=== PATIENT | female | born 1960 | race African-American/Black ===

== ENCOUNTER → 2018-03-18 | Outpatient (CLI) | payer BC ==
[~2018-03-18] MED LIST: ALDACTONE25 MG PO; ASPIR 8181 MG PO; CARVEDILOL12.5 MG PO; CATAPRES0.1 MG PO; CLONIDINE0.1 PO; HYDROCHLOROTHIA25 M2 PO; K-DUR 20 MEQ T20 MEQ PO; LASIX 40 MG TAB40 M1 PO; LISINOPRIL20 MG PO; PRINIVIL20 MG PO
--- NOTE | ~2018-03-18 | 2DMMODE ---
[facility] [place] [address] 2 D/M-MODE ECHOCARDIOGRAM Name: CHRISTOFER OCASIO Room #: REG [facility]#: [id number] Admission: 03/18/18 Attend Phys: Melchor Paniagua MD Discharge: Date of : 64 Date of Service: 03/18/18 1504 Report #: [id number] THIS REPORT FOR: //name// APPROVED REPORT Study performed: 03/18/2018 14:13:03 EXAM: Comprehensive 2D, Doppler, and color-flow Echocardiogram Patient Location: Out-Patient Status: routine BSA: 1.87 HR: 90 bpm BP: 168/103 mmHg Other Information Study Quality: Adequate Indications Congestive Heart Failure CAD Hypertension/HDD 2D Dimensions RVDd: 28.19 mm IVSd: 11.25 (7-11mm) LVOT Diam: 19.61 (18-24mm) LVDd: 46.99 mm PWd: 11.40 (7-11mm) Ascending Ao: 30.90 (22-36mm) LVDs: 35.81 (25-40mm) Aortic Root: 27.64 mm IVC: 10.00 mm Volumes Left Atrial Volume (Systole) Single Plane 4CH: 65.25 mL Single Plane 2CH: 58.86 mL LA ESV Index: 35.00 mL/m2 Aortic Valve AoV Peak Keagan.: 1.59 m/s AO Peak Gr.: 10.18 mmHg LVOT Max P.47 mmHg LVOT Max V: 1.17 m/s NA Vmax: 2.21 cm2 Mitral Valve E/A Ratio: 0.9 MV Decel. Time: 203.10 ms [facility] [address] [place] [address] 2 D/M-MODE ECHOCARDIOGRAM Name: NINFACHRISTOFER F Room #: [facility]#: [id number] Admission: 03/18/18 Attend Phys: Melchor Paniagua MD Discharge: Date of : 64 Date of Service: 03/18/18 1504 Report #: [id number] MV E Max Keagan.: 0.84 m/s MV A Keagan.: 0.96 m/s MV PHT: 58.90 ms IVRT: 121.11 ms Pulmonary Valve PV Peak Keagan.: 1.09 m/s PV Peak Gr.: 4.77 mmHg Pulmonary Vein P Vein S: 0.50 m/s P Vein A: 0.18 m/s P Vein D: 0.42 m/s P Vein A Dur.: 69.2 msec P Vein S/D Ratio: 1.19 Tricuspid Valve TR Peak Keagan.: 2.99 m/s RAP Estimate: 5.00 mmHg TR Peak Gr.: 35.70 mmHg PA Pressure: 41.00 mmHg Left Ventricle The left ventricle is normal size. Mild concentric left ventricular hypertrophy. The left ventricular systolic function is normal. The left ventricular ejection fraction is within the normal range. LVEF is 55%. Mild diastolic dysfunction is present (impaired relaxation pattern). Right Ventricle The right ventricle is normal size. The right ventricular systolic function is normal. Atria Left atrium is at the upper limits of normal. The right atrium size is normal. Aortic Valve The aortic valve is normal in structure. No aortic regurgitation is present. There is no aortic valvular stenosis. Mitral Valve The mitral valve is normal in structure. Mild to moderate mitral regurgitation. No evidence of mitral valve stenosis. Tricuspid Valve The tricuspid valve is normal in structure. Mild tricuspid regurgitation. PAP is estimated at 41 mmHg. Pulmonic Valve [facility] [address] [place] [address] 2 D/M-MODE ECHOCARDIOGRAM Name: CHRISTOFER OCASIO Room #: [facility] [id number] Admission: 03/18/18 Attend Phys: Melchor Paniagua MD Discharge: Date of : 64 Date of Service: 03/18/18 1504 Report #: [id number] The pulmonary valve is normal in structure. Trace pulmonic regurgitation. Great Vessels The aortic root is normal in size. IVC is normal in size and collapses >50% with inspiration. Pericardium There is no pericardial effusion. <Conclusion> The left ventricle is normal size. Mild concentric left ventricular hypertrophy. The left ventricular systolic function is normal. Mild diastolic dysfunction is present (impaired relaxation pattern). The right ventricle is normal size. Left atrium is at the upper limits of normal. The aortic valve is normal in structure. Mild to moderate mitral regurgitation. Mild tricuspid regurgitation. PAP is estimated at 41 mmHg. <ELECTRONICALLY SIGNED> By: Melchor Paniagua MD 03/18/18 1504 1504 1504 Melchor Paniagua MD /INF
== END ==
LOC: CV 12:12
DX: I10 Essential (primary) hypertension (principal); I25.10 Atherosclerotic heart disease of native coronary artery without angina pectoris; I50.9 Heart failure, unspecified; I08.1 Rheumatic disorders of both mitral and tricuspid valves; I42.9 Cardiomyopathy, unspecified

== ENCOUNTER → 2019-09-17 | Outpatient (CLI) | payer BC | LOC: SJCVCIMAG 12:35 | DX: I08.1 Rheumatic disorders of both mitral and tricuspid valves (principal); I11.9 Hypertensive heart disease without heart failure; I42.9 Cardiomyopathy, unspecified ==

== ENCOUNTER → 2019-10-07 | Outpatient (CLI) | payer BC, OTHER | LOC: SJCVCIMAG 10:41 | DX: I10 Essential (primary) hypertension (principal); R06.09 Other forms of dyspnea; I42.9 Cardiomyopathy, unspecified ==

== ENCOUNTER → 2020-04-30 | Outpatient (CLI) | payer BC | LOC: SJCVCIMAG 04-16 08:58 | PROVIDERS: ATTEND Internal Medicine Cardiovascular Disease | DX: N28.1 Cyst of kidney, acquired (principal); I10 Essential (primary) hypertension ==